=== PATIENT | male | born 1965 | race Caucasian/White ===

== ENCOUNTER 2022-02-05 18:13 | Emergency (ER) | payer OTHER, SELFPAY ==
--- NOTE | ~2022-02-05 | XR_ITS ---
Indication: Pain, bruising EXAMINATION: Right tib-fib, right foot. 3 views of the right foot show fractures of the distal second and third metatarsal. There is also fracture of the proximal second metatarsal. Vascular calcifications are noted. Some minimal irregularity at the base of the first metatarsal. Fracture cannot be excluded here. 2 views of the tib-fib do not demonstrate acute fracture. XR/XR foot RT min 3V IMPRESSION: Fractures of the distal second and third metatarsal and fracture of the proximal second metatarsal as well. I cannot exclude nondisplaced fractures of the proximal aspect of the first metatarsal. No fracture seen of the tib-fib. Vascular calcifications are noted
--- NOTE | ~2022-02-05 | XR_ITS ---
Indication: Pain, bruising EXAMINATION: Right tib-fib, right foot. 3 views of the right foot show fractures of the distal second and third metatarsal. There is also fracture of the proximal second metatarsal. Vascular calcifications are noted. Some minimal irregularity at the base of the first metatarsal. Fracture cannot be excluded here. 2 views of the tib-fib do not demonstrate acute fracture. XR/XR tibia fibula RT 2V IMPRESSION: Fractures of the distal second and third metatarsal and fracture of the proximal second metatarsal as well. I cannot exclude nondisplaced fractures of the proximal aspect of the first metatarsal. No fracture seen of the tib-fib. Vascular calcifications are noted
[2022-02-05 18:24] VITALS: BP 125/85; PULSE 90; O2SAT 98
[2022-02-05 18:26] VITALS: BP 122/81; PULSE 103; RESP 18; TEMP 37.1; O2SAT 96
[2022-02-05 18:29] VITALS: BP 122/67; PULSE 102; RESP 20; TEMP 36.8; O2SAT 95; BMI 22.2
[2022-02-05] MEDS: Acetaminophen 325 MG TABLET 975 MG PO (20:09)
--- NOTE | 2022-02-05 20:52 | ED.LOWEXIN ---
HPI - Extremity Injury (Lower) General Chief Complaint: Extremity Injury, Lower Stated Complaint: R. ankle pain Time Seen by Provider: 02/05/22 19:22 Source: patient Mode of arrival: ambulatory Limitations: no limitations History of Present Illness HPI Narrative: patient presents emergency department for evaluation of right foot pain. He reports that while walking earlier today outside his foot suddenly felt weak and he fell landing on to his right foot and knee. He had no initial pain, swelling, deformity so he continues walking. He presented to [facility] today seeking treatment for detox from alcohol. Patient has had an ongoing history with alcoholism in the past. Was sober for the past 3 years by his report, but relapsed on alcohol over the past 3 days. He does admit to a history of withdrawal seizures years ago with his usage. While at detox today, he began reporting pain, swelling, and bruising to the right foot, and was referred by their staff to come to the emergency department for evaluation. Related Data Home Medications Medication Instructions Recorded Confirmed buprenorphine 12 mg-naloxone 3 mg 1 strip SUBLINGUAL DAILY 02/05/22 sublingual film (Suboxone) clonidine HCl 0.1 mg tablet 1 tab PO TID 02/05/22 divalproex 500 mg tablet,extended 1 tab PO BEDTIME 02/05/22 release 24 hr dulaglutide 1.5 mg/0.5 mL mg TOPICAL QWEEK 02/05/22 subcutaneous pen injector (Trulicity) gabapentin 800 mg tablet 1 tab PO TID 02/05/22 levothyroxine 50 mcg tablet 1 tab PO DAILY 02/05/22 meloxicam 15 mg tablet 1 tab PO DAILY 02/05/22 metformin 1,000 mg tablet 1 tab PO BID 02/05/22 methocarbamol 500 mg tablet 2 tab PO Q8H PRN 02/05/22 paroxetine HCl 20 mg tablet 1 tab PO QAM 02/05/22 propranolol 80 mg tablet 1 tab PO BID 02/05/22 trazodone 150 mg tablet 2 tab BEDTIME 02/05/22 Allergies Allergy/AdvReac Type Severity Reaction Status Date / Time No Known Allergies Allergy Verified 02/05/22 19:22 Review of Systems Review of Systems: Constitutional: No weight loss, fever, chills, weakness or fatigue. Skin: No rash or itching. Cardiovascular: No chest pain, chest pressure or chest discomfort. No palpitations or pedal edema. Respiratory: No shortness of breath, cough or sputum production. Gastrointestinal: No anorexia, nausea, vomiting or diarrhea. No abdominal pain or blood in stool. Genitourinary: No burning micturition. No urinary frequency or incontinence. Musculoskeletal: Positive left foot pain Psychiatric: No depression or anxiety. Yes all other systems are reviewed and are negative PMFSH Past Medical History Attestation statement: The following information was validated with the patient. Source: old records reviewed Medical History Chronic back pain Diabetes ETOHism Surgical History Total knee replacement status Social History Social History Advance Directives: No Advance Directives Information Provided: No Physical Exam Vital Signs: Vital Signs: Last Vital Signs Temp 98.2 F 02/05/22 18:29 Pulse 102 H 02/05/22 18:29 Resp 20 02/05/22 18:29 BP 122/67 02/05/22 18:29 Pulse Ox 95 02/05/22 18:29 BMI result Body Mass Index 22.2 Vital signs have been reviewed as normal and appeared to be correct. Blood pressure normal.? Heart rate normal.? Respiration rate normal. Temperature normal.? Oxygen saturation normal. Appearance: Alert.?Oriented to person, place and time. No acute distress.?Normal affect. Eyes: Pupils equal, round and reactive to light.? ENT: Pharynx normal.?? Neck: Normal inspection.? Neck supple.?? CVS: Heart sounds normal. Normal heart rate and rhythm.? Pulses normal.?? Respiratory: No respiratory distress.? Lung sounds clear to auscultation bilaterally?? Abdomen: Soft and non-tender. ? Skin: Skin warm and dry.? Normal skin color.? Extremities: right foot with 1+ palpable DP/ PT pulse, moderate edema over the midfoot, lateral deviation of the 2nd through 4th digit, bruising and erythema over the dorsal aspect of the foot at the base of the metatarsals. Full range of motion to the ankle. Bruising and mild swelling noted over the proximal lower leg, just inferior to the knee No lower extremity edema.? No calf ttp? Neuro: Moves all extremities spontaneously. Sensation intact bilaterally. CN II-XII intact. No focal neuro deficits. Ambulates with normal steady gait. Course Course Course Narrative: patient is a 56-year-old male with a past medical history of diabetes, controlled with metformin and insulin, presenting to the emergency department for evaluation of a right foot pain swelling bruising after injury today. X-ray of the right tib-fib without any fracture. Right foot x-ray reveals fracture of the distal 2nd and 3rd metatarsal in fracture of the proximal 2nd metatarsal as well, cannot exclude non- displaced fractures of the proximal aspect of the 1st metatarsal. spoke with Dr. Terry from Orthopedics who agrees with outpatient follow-up, walking boot, Tylenol and ibuprofen as needed for pain. At this time, patient no longer has a bed available at more of the [facility] [place] for detox, spoke with tissue recovery technician who confirmed this. tissue recovery technician states that they will touch base with patient in the morning or involve care team to facilitate disposition. Patient placed in position observation at this time 2114, as he will require time for further evaluation by care team to facilitate alcohol detox. MDM - Extremity Injury (Lower) Medical Records Attestation: I reviewed the patient's medical records. Imaging Data xr foot: Radiologist's impression: XR/XR foot RT min 3V IMPRESSION: Fractures of the distal second and third metatarsal and fracture of the proximal second metatarsal as well. ? I cannot exclude nondisplaced fractures of the proximal aspect of the first metatarsal. ? No fracture seen of the tib-fib. ? Vascular calcifications are noted Discharge Plan Discharge Clinical Impression: Fracture of right foot Patient Disposition: Still a Patient Instructions: Foot Fracture in Adults (ED) Additional Instructions: Wear walking boot at all times. You can take ibuprofen 200 mg, 3 tablets (600mg) every 6-8 hours as needed for pain, in addition to Tylenol 500 mg, 2 tablets (1,000mg) every 4-6 hours as needed for pain, but not to exceed 3 doses daily (3,000mg).? Be sure to rest, ice the foot well resting, elevate the leg while resting. You will need to follow-up with orthopedics next week, he had been given contact information for [facility], you can follow-up with [facility] if you wish too, as you are already being followed by them. Return to the emergency department with any new or worsening symptoms or concerns, if you develop dizziness, lightheadedness, passing out, chest pain, palpitations, shortness of breath, difficulty breathing, worsening pain, swelling of her foot for pain and swelling of the leg return back to the emergency department Prescriptions: No Action methocarbamol 500 mg tablet 2 tab PO Q8H PRN (Reason: muscle spasm) 0RF clonidine HCl 0.1 mg tablet 1 tab PO TID 0RF propranolol 80 mg tablet 1 tab PO BID 0RF meloxicam 15 mg tablet 1 tab PO DAILY 0RF gabapentin 800 mg tablet 1 tab PO TID 0RF levothyroxine 50 mcg tablet 1 tab PO DAILY 0RF paroxetine HCl 20 mg tablet 1 tab PO QAM 0RF trazodone 150 mg tablet 2 tab BEDTIME 0RF metformin 1,000 mg tablet 1 tab PO BID 0RF divalproex 500 mg tablet extended release 24 hr 1 tab PO BEDTIME 0RF buprenorphine-naloxone [Suboxone] 12-3 mg film 1 strip sublingual DAILY 0RF Trulicity 1.5 mg/0.5 mL pen injector topical QWEEK 0RF Referrals: Michelle Terry MD [Physician] - 3 days
--- NOTE | 2022-02-05 21:55 | MHC.RECOVSUP ---
? Reason for consult:Recovery Support o ? ? ?Current location: ED08 o ? ? ?Identified substance use concern:Alcohol ? - Support ? ?Intervention: o Community resources provided o Harm reduction discussion ? Plan: o Follow up tomorrow ? ? Additional information:?I was able to connect with patient and review at [facility]. Patient is a 56 year old single male who lives here in [place] with his elderly father and alcoholic brother. Pt has a history of JESSICA with alcohol and claims he suffers from other mental health issues. Pt arrived at the ED with the need for Xray's of his foot as a result of an accident from drinking. Pt needs to be medically cleared before returning to his secured bed for 9:15pm at [facility] this evening and unfortunately he didn't make that secured time. After speaking with Aman at [facility], there will be a bed for him in the am however a lift needs to be provided and patient needs his to bring his paperwork. I was able to review harm reduction strategies as we spoke about his participation with AA. 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 After reviewing his position in the 12 steps patient realized where he needs to apply action moving forward. Community resources was provided.
--- NOTE | 2022-02-05 22:14 | PHA.MEDREC ---
Pharmacy Consult ? Medication Reconciliation Pharmacy has completed the medication reconciliation. No remarkable issues. Karen Collado, [facility]
[2022-02-05 22:31] VITALS: BP 130/94; PULSE 95; RESP 14; TEMP 37; O2SAT 94
[2022-02-05 22:40] LABS: Glucose, Whole Blood 283 mg/dL (60-115)
--- NOTE | 2022-02-05 23:13 | PC.NURSE ---
Pt resting on stretcher [place] and drink given Pt medically cleared and awaiting lyft in the AM to take him to [facility]
[2022-02-06 02:07] VITALS: BP 124/87; PULSE 96; RESP 16; O2SAT 99
[2022-02-06] MEDS: Acetaminophen 325 MG TABLET 975 MG PO (04:48)
[2022-02-06 07:51] LABS: Glucose, Whole Blood 235 mg/dL (60-115)
[2022-02-06 09:14] VITALS: BP 123/72; PULSE 94; RESP 16; O2SAT 94
--- NOTE | 2022-02-06 09:29 | MHC.RECOVSUP ---
Addendum entered by Kvng Robertson [facility] 02/06/22 10:10: [facility] reports patient can return to facility. Admission time scheduled for 1115. Floor Covering Printer arranged transportation through [facility]. Patient will be transported to facility at 1100. Original Note: Recovery Support note: Patient is a 56 year old Khmer speaking male who [place] [facility] due to foot pain. This commercial loan underwriter and Recovery Support Nurse met with patient to discuss treatment plan. Patient reports severe foot pain however states he is still interested in going back to detox. Patient information faxed to [facility] for review. This commercial loan underwriter awaits follow up to confirm that patient is all set to return for an admission at 1415. Patient reports mistreatment while at [facility], stating that he was denied medical treatment. In discussing the course of his hospital visit patient reported that he recorded a situation that occurred with another patient in the ED. Upon clarification, patient reports he did not record it on his phone, but that he took inspiration from the event and recorded concepts of it in a notebook for a comedy bit. This commercial loan underwriter will inform patient and nursing staff once bed at [facility] is confirmed.
[2022-02-06] MEDS: Buprenorphine/Naloxone 12/3 mg FILM 1 FILM SUBLINGUAL (09:44)
--- NOTE | 2022-02-06 09:45 | PC.NURSE ---
pt presented his own Suboxone to t/w and asked me to cut it open for him. requested dr to order his suboxone from our system. Call placed to pharmacy who reported to hold onto the med if need be as there is no need to send med down to pharmacy. pts own Suboxone was retrieved from his med pack and was returned to the bag. pt medicated with Suboxone from pyxis
--- NOTE | 2022-02-06 10:20 | PC.NURSE ---
attempted to call [facility] to give nure to nurse report and facility reports they were unable to take report at this time as they do not have an admission/inake nurse at the time.
== END 2022-02-06 11:13 | disposition other institution (70) ==
PROVIDERS: Emergency Provider Internal Medicine; PCP Internal Medicine
DX: S92.901A Unspecified fracture of right foot, initial encounter for closed fracture (principal); M79.671 Pain in right foot; R60.0 Localized edema; X58.XXXA Exposure to other specified factors, initial encounter; Y93.9 Activity, unspecified; Y92.480 Sidewalk as the place of occurrence of the external cause; Y99.9 Unspecified external cause status; Z79.899 Other long term (current) drug therapy; Z71.41 Alcohol abuse counseling and surveillance of alcoholic
CPT/HCPCS: 73590; 73630; 82947; 99284; 99285

== ENCOUNTER 2022-02-07 01:35 | Emergency (ER) | payer OTHER, SELFPAY ==
[2022-02-07] VITALS (7 sets, daily range): BP systolic 122–138; BP diastolic 70–106; PULSE 91–100; RESP 14–20; TEMP 36.8–37.2; O2SAT 95–97; BMI 23.8
--- NOTE | ~2022-02-07 | XR_ITS ---
EXAMINATION: XR CHEST CLINICAL INFORMATION: Rhonchi and wheezing COMPARISON: None TECHNIQUE: Frontal view of the chest was obtained. FINDINGS: The cardiac and mediastinal contours are normal. The lungs are clear. There is no pleural effusion or pneumothorax. There are degenerative changes of the spine. XR/XR chest 1V IMPRESSION: No evidence for acute disease in the chest.
--- NOTE | 2022-02-07 02:58 | ED.LOWEXIN ---
HPI - Extremity Injury (Lower) General Chief Complaint: Extremity Injury, Lower Stated Complaint: FOOT PAIN Time Seen by Provider: 02/07/22 02:51 Source: patient and EMS Limitations: no limitations History of Present Illness HPI Narrative: Patient comes to emergency room for pain management for right foot pain. Patient was discharged yesterday from [facility], patient is known to have distal 2nd and 3rd metatarsal in fracture of the proximal 2nd metatarsal as well, cannot exclude non- displaced fractures of the proximal aspect of the 1st metatarsal.? If patient is currently in a [facility] program for alcohol detox. Patient was sent home with Tylenol. Patient states that the Tylenol was not controlling well the pain. Patient was brought to the emergency room. However, patient lost his bed at [facility]. Related Data Home Medications Medication Instructions Recorded Confirmed buprenorphine 12 mg-naloxone 3 mg 1 strip SUBLINGUAL DAILY 02/05/22 02/05/22 sublingual film (Suboxone) clonidine HCl 0.1 mg tablet 1 tab PO TID 02/05/22 02/05/22 divalproex 500 mg tablet,extended 1 tab PO BEDTIME 02/05/22 02/05/22 release 24 hr dulaglutide 1.5 mg/0.5 mL 1.5 mg TOPICAL FR 02/05/22 02/05/22 subcutaneous pen injector (Trulicity) gabapentin 800 mg tablet 1 tab PO TID 02/05/22 02/05/22 levothyroxine 50 mcg tablet 1 tab PO DAILY 02/05/22 02/05/22 meloxicam 15 mg tablet 1 tab PO DAILY 02/05/22 02/05/22 metformin 1,000 mg tablet 1 tab PO BID 02/05/22 02/05/22 methocarbamol 500 mg tablet 2 tab PO Q8H PRN 02/05/22 02/05/22 multivitamin 1 tab PO DAILY 02/05/22 02/05/22 paroxetine HCl 20 mg tablet 1 tab PO BEDTIME 02/05/22 02/05/22 propranolol 80 mg tablet 1 tab PO BID 02/05/22 02/05/22 trazodone 150 mg tablet 2 tab BEDTIME 02/05/22 02/05/22 Allergies Allergy/AdvReac Type Severity Reaction Status Date / Time No Known Allergies Allergy Verified 02/05/22 19:22 Review of Systems Review of Systems: Constitutional : No Weight loss, No Fever, No Chills, No Night Sweats, No Fatigue, No Malaise ENT/Mouth : No Hearing loss, No Ear Pain, No Nasal Congestion, No Sinus Pain, No Hoarseness, No sore throat, No Rhinorrhea, No Swallowing Difficulty Eyes: No Eye Pain, No Swelling, No Redness, No Foreign Body, No Discharge, No Vision Changes Cardiovascular : No Chest Pain, No SOB, No Dyspnea on Exertion, No Orthopnea, No Edema, No Palpitations Respiratory : No Cough, No Sputum, No Wheezing, No Smoke Exposure, No Dyspnea Gastrointestinal : No Nausea, No Vomiting, No Diarrhea, No Constipation, No abdominal Pain, No Hematochezia, No Melena Genitourinary : no irregular bleeding, No Dysuria, No Urinary Frequency, No Hematuria, No Urinary Incontinence, No Urgency, No Flank Pain, No Urinary Flow Changes, No Hesitancy Musculoskeletal : Complaining of right foot pain, ecchymosis of the toes and foot, No Myalgias, No Joint Swelling Skin : No Skin Lesions, No rash Neuro : No Weakness, No Numbness, No Paresthesias, No Loss of Consciousness, No Dizziness, No Headache Psych : No Anxiety/Panic, No Depression, No SI/HI/AH/VH, No Social Issues, Heme/Lymph: No Bruising, No Bleeding,No Lymphadenopathy Endocrine : No Polyuria, No Polydipsia, No Temperature Intolerance PMFSH Past Medical History Medical History Chronic back pain Diabetes ETOHism Surgical History Total knee replacement status Social History Social History Advance Directives: No Physical Exam Vital Signs: Vital Signs: Last Vital Signs Temp 99.0 F 02/07/22 02:44 Pulse 95 02/07/22 02:44 Resp 16 02/07/22 02:44 BP 122/76 02/07/22 02:44 Pulse Ox 96 02/07/22 02:44 BMI result Body Mass Index 23.8 Const: Other: Appearance: Alert. Oriented X3. No acute distress. Eyes: Pupils equal, round and reactive to light. ENT: Pharynx normal. Neck: Normal inspection. Neck supple. No lymph nodes noted. No crepitus CVS: Normal heart rate and rhythm. Pulses normal. Normal S1 and S2 Respiratory: No respiratory distress. Breath sounds normal. No Wheezing. No rales Abdomen: Soft and nontender. No rigidity. No distention. Skin: Skin warm and dry. Normal skin color. Normal skin turgor. Extremities: Right foot is swollen, better than yesterday. , ecchymosis in the toes, compartment syndrome not suspected. Neuro: Oriented X 3. No motor deficit. No sensory deficit. Moving all extremities. No slurred speech. CN 2 through 12 grossly intact Psych: calm, cooperative, normal affect Course Course Course Narrative: Patient was given 1 dose of oxycodone. Patient states that he was told that there is a bed available at 09:00 in [facility], requesting if we can have the care team or the motor coach chauffeur is helped him with phone calls to get back to [facility] this morning. Physician observation started at 03:00 Discharge Plan Discharge Clinical Impression: Inadequate pain control Patient Disposition: Still a Patient Prescriptions: No Action methocarbamol 500 mg tablet 2 tab PO Q8H PRN (Reason: muscle spasm) 0RF clonidine HCl 0.1 mg tablet 1 tab PO TID 0RF propranolol 80 mg tablet 1 tab PO BID 0RF meloxicam 15 mg tablet 1 tab PO DAILY 0RF gabapentin 800 mg tablet 1 tab PO TID 0RF levothyroxine 50 mcg tablet 1 tab PO DAILY 0RF paroxetine HCl 20 mg tablet 1 tab PO BEDTIME 0RF trazodone 150 mg tablet 2 tab BEDTIME 0RF metformin 1,000 mg tablet 1 tab PO BID 0RF divalproex 500 mg tablet extended release 24 hr 1 tab PO BEDTIME 0RF buprenorphine-naloxone [Suboxone] 12-3 mg film 1 strip sublingual DAILY 0RF Trulicity 1.5 mg/0.5 mL pen injector 1.5 mg topical FR 0RF multivitamin Tablet 1 tab PO DAILY 0RF
[2022-02-07] MEDS: oxyCODONE HCl Immed Release 5 MG TABLET PO ×2 (03:05→12:37)
--- NOTE | 2022-02-07 07:29 | PC.NURSE ---
Pt A&Ox4, pain 3/10 at this time, boot is off the foot at this time. R ft noted to be purple tinted, +pulse with tenderness. Awaiting ortho consult at this time. Will continue to monitor
[2022-02-07] MEDS: Albuterol Sulfate 90 MCG 8 GM INHALER 2 PUFF INHALE (08:40)
--- NOTE | 2022-02-07 08:40 | MHC.CARE ---
PT is currently being evaluated medically. Pt's plan was to be referred to [facility] and will be re-evaluated by Kvng Lawrence
[2022-02-07 08:59] LABS: COVID-19 Test Negative (Negative); IDNOW Serial# 16C4AD1C
--- NOTE | 2022-02-07 10:50 | PC.NURSE ---
pt reports after walking his dog this morning his left nostril started to bleed uncontrollably. pt states he went to [facility] and they packed his nostril and placed a clamp on it. he also reports seeing a large amount of bright red blood draining. pt not on thinners. he denies difficulty breathing.
--- NOTE | 2022-02-07 13:36 | MHC.RECOVSUP ---
Recovery Support note: Patient is a 56 year old Dominican speaking male who presented to [facility] from [facility] due to foot pain. Patient is known to this automatic typewriter inspector from a previous consultation yesterday. Patient initially wanted to return to [facility] however [facility] does not have intake staff today as no one is answering the phone. Patient is not interested in going anywhere else for detox. At this time, patient is requesting to discharge home. Patient reports he was sober for 3 years and had a pack of beer before going to [facility] over 4 days ago. Patient reports he feels good about his plan to go home, stating he has his dog and a comfortable bed waiting for him. Discussed case with ED provider.
== END 2022-02-07 14:06 | disposition home or self-care (01) ==
PROVIDERS: Physician Assistant; Emergency Provider Emergency Medicine
DX: M79.671 Pain in right foot (principal); Z79.899 Other long term (current) drug therapy; Z20.822 Contact with and (suspected) exposure to COVID-19
CPT/HCPCS: 71045; 87635; 94640; 94664; 99284